=== PATIENT | male | born 1990 | race Caucasian/White ===

== ENCOUNTER 2018-09-02 22:19 | Emergency (ER) | payer OTHER ==
[~2018-09-02] VITALS: Ht 175.3 cm; Wt 84.6 kg
[2018-09-02 22:35] VITALS: Ht 175.3 cm; Wt 84.6 kg
[2018-09-03 00:02] VITALS: BP 130/68
== END 2018-09-03 00:02 | disposition home or self-care (01) ==
LOC: ED 22:19
DX: S93.101A Unspecified subluxation of right toe(s), initial encounter (principal); W22.8XXA Striking against or struck by other objects, initial encounter; Y93.89 Activity, other specified; Y92.89 Other specified places as the place of occurrence of the external cause; Y99.8 Other external cause status